=== PATIENT | female | born 1980 | race Caucasian/White ===

== ENCOUNTER 2018-09-17 15:19 | Emergency (ER) | payer MEDICARE, MEDICAID ==
[~2018-09-17] VITALS: Ht 157.5 cm; Wt 134.0 kg
[~2018-09-17 15:19] MED LIST: DIAZ2TAB PO; IBUP-1985 PO; ONDA8TAB13 PO; POLY17PO10 PO; SENN-25 PO; SUCR1ORA2 PO; [UNRECOGNIZED DRUG - CODE] PO
[2018-09-17 15:31] VITALS: BP 147/82
[2018-09-17] MEDS ORDERED: benzonatate 100mg capsule PO ONE (15:55)
[2018-09-17] MEDS ORDERED: BENZ-16 PO (15:56)
[2018-09-17] MEDS ORDERED: CETI-102 PO (15:56)
[2018-09-17] MEDS ORDERED: GUAI237S46 PO (15:56)
== END 2018-09-17 16:09 | disposition home or self-care (01) ==
LOC: ER 15:20
DX: J02.8 Acute pharyngitis due to other specified organisms (principal); B97.89 Other viral agents as the cause of diseases classified elsewhere; R05 Cough; G43.909 Migraine, unspecified, not intractable, without status migrainosus; M19.90 Unspecified osteoarthritis, unspecified site; M79.7 Fibromyalgia; Z98.890 Other specified postprocedural states; Z90.89 Acquired absence of other organs; Z88.8 Allergy status to other drugs, medicaments and biological substances; Z88.1 Allergy status to other antibiotic agents; Z88.6 Allergy status to analgesic agent; Z79.899 Other long term (current) drug therapy
CPT/HCPCS: 99283

== ENCOUNTER 2018-10-28 18:42 | Emergency (ER) | payer MEDICAID, MEDICARE, OTHER ==
[~2018-10-28] VITALS: Ht 157.5 cm; Wt 124.5 kg
[~2018-10-28 18:42] MED LIST changes: +CETI-102 PO
[2018-10-28 18:56] VITALS: BP 132/75
[2018-10-28] MEDS ORDERED: ibuprofen tablet 400 MG TABLET PO ONE (19:25)
== END 2018-10-28 21:02 | disposition home or self-care (01) ==
LOC: ER 18:42
DX: S16.1XXA Strain of muscle, fascia and tendon at neck level, initial encounter (principal); G43.909 Migraine, unspecified, not intractable, without status migrainosus; M19.90 Unspecified osteoarthritis, unspecified site; M79.7 Fibromyalgia; Z98.890 Other specified postprocedural states; Z90.89 Acquired absence of other organs; Z88.8 Allergy status to other drugs, medicaments and biological substances; Z88.1 Allergy status to other antibiotic agents; Z88.6 Allergy status to analgesic agent; Z88.3 Allergy status to other anti-infective agents; Z79.899 Other long term (current) drug therapy; V49.88XA Car occupant (driver) (passenger) injured in other specified transport accidents, initial encounter; Y93.89 Activity, other specified; Y92.413 State road as the place of occurrence of the external cause; Y99.9 Unspecified external cause status
CPT/HCPCS: 72040; 99284

== ENCOUNTER 2019-01-06 18:29 | Emergency (ER) | payer MEDICARE, MEDICAID ==
[~2019-01-06] VITALS: Ht 157.5 cm; Wt 131.6 kg
[2019-01-06 18:32] VITALS: BP 145/40
[2019-01-06 19:19] LABS: BASOPHILS # (AUTO) 0.1 X10'3 (0-0.2); BASOPHILS % (AUTO) 0.5 % (0-1); EOSINOPHILS # (AUTO) 0.2 X10'3 (0-0.9); EOSINOPHILS % (AUTO) 1.8 % (0-6); HEMATOCRIT 36.8 % (35.0-45.0); HEMOGLOBIN 12.2 g/dl (12.0-16.0); LYMPHOCYTES # (AUTO) 1.9 X10'3 (1.1-4.8); LYMPHOCYTES % (AUTO) 17.7 % (21-51); MEAN CORPUSCULAR HEMOGLOBIN 26.9 PG (27.0-31.0); MEAN CORPUSCULAR HGB CONC 33.3 g/dL (33.0-36.5); MEAN CORPUSCULAR VOLUME 80.9 FL (78-98); MEAN PLATELET VOLUME 8.5 FL (7.4-10.4); MONOCYTES # (AUTO) 0.5 X10'3 (0-0.9); MONOCYTES % (AUTO) 4.6 % (2-12); NEUTROPHILS # (AUTO) 8.2 X10'3 (1.8-7.7); NEUTROPHILS % (AUTO) 75.4 % (42-75); PLATELET COUNT 265 X10'3 (140-440); RED BLOOD COUNT 4.55 X10'6 (4.20-5.60); RED CELL DISTRIBUTION WIDTH 15.7 % (11.5-14.5)
[2019-01-06] MEDS ORDERED: acetaminophen 325mg tablet PO ONE ×2 (19:25→19:30)
[2019-01-06] MEDS ORDERED: azithromycin 250mg tablet PO ONE (19:30)
[2019-01-06] MEDS ORDERED: ketorolac trometh inj. 60 MG/2 ML VIAL IM ONE (19:30)
[2019-01-06 19:33] LABS: ALANINE AMINOTRANSFERASE 24 U/L (12-78); ALBUMIN 3.6 G/DL (3.4-5.0); ALBUMIN/GLOBULIN RATIO 0.8 (1.1-1.5); ALKALINE PHOSPHATASE 107 IU/L (46-116); ANION GAP 10 (8-16); ASPARTATE AMINO TRANSFERASE 11 U/L (10-37); BILIRUBIN,TOTAL 0.3 MG/DL (0.1-1.0); BLOOD UREA NITROGEN 11 MG/DL (7-18); BUN/CREATININE RATIO 12.6 (6.6-38.0); CALCIUM 9.2 MG/DL (8.5-10.1); CHLORIDE 104 MMOL/L (99-107); CREATININE 0.87 MG/DL (0.40-0.90); GLUCOSE 115 MG/DL (70-104); POTASSIUM 3.4 MMOL/L (3.5-5.1); SODIUM 137 MMOL/L (135-145); TOTAL PROTEIN 8.1 G/DL (6.4-8.2); eGFR 74 ML/MIN
[2019-01-06] MEDS ORDERED: IBUP-1985 PO (20:14)
[2019-01-06] MEDS ORDERED: ACET-2615 PO (20:14)
[2019-01-06] MEDS ORDERED: AZIT-63 PO (20:14)
[2019-01-06] MEDS ORDERED: BENZ-16 PO (20:14)
== END 2019-01-06 20:37 | disposition home or self-care (01) ==
LOC: ER 18:29
DX: R50.9 Fever, unspecified (principal); R05 Cough; G43.909 Migraine, unspecified, not intractable, without status migrainosus; M19.90 Unspecified osteoarthritis, unspecified site; M79.7 Fibromyalgia; Z98.890 Other specified postprocedural states; Z90.89 Acquired absence of other organs; Z88.1 Allergy status to other antibiotic agents; Z88.3 Allergy status to other anti-infective agents; Z88.6 Allergy status to analgesic agent; Z79.899 Other long term (current) drug therapy
CPT/HCPCS: 36415; 71045; 80053; 83605; 84145; 85025; 87040; 93005; 96372; 99284; J1885

== ENCOUNTER 2020-01-22 19:28 | Emergency (ER) | payer MEDICARE, MEDICAID ==
[~2020-01-22] VITALS: Ht 157.5 cm; Wt 133.6 kg
[~2020-01-22 19:28] MED LIST changes: -CETI-102 PO; +CETI-90 PO
[2020-01-22 19:32] VITALS: BP 146/86
== END 2020-01-22 21:03 | disposition left against medical advice (07) ==
LOC: ER 19:28
DX: R50.9 Fever, unspecified (principal); Z53.21 Procedure and treatment not carried out due to patient leaving prior to being seen by health care provider

== ENCOUNTER 2021-03-02 00:04 | Emergency (ER) | payer MEDICARE, MEDICAID ==
[~2021-03-02] VITALS: Ht 154.9 cm; Wt 139.3 kg
[2021-03-02 00:19] VITALS: BP 137/59
== END 2021-03-02 01:10 | disposition home or self-care (01) ==
LOC: ER 00:05
DX: R09.89 Other specified symptoms and signs involving the circulatory and respiratory systems (principal); J01.10 Acute frontal sinusitis, unspecified; J01.00 Acute maxillary sinusitis, unspecified; J34.89 Other specified disorders of nose and nasal sinuses; G43.909 Migraine, unspecified, not intractable, without status migrainosus; I10 Essential (primary) hypertension; M19.90 Unspecified osteoarthritis, unspecified site; F41.9 Anxiety disorder, unspecified; F32.9 Major depressive disorder, single episode, unspecified; Z87.440 Personal history of urinary (tract) infections; Z90.89 Acquired absence of other organs; Z98.890 Other specified postprocedural states; Z72.89 Other problems related to lifestyle; Z88.1 Allergy status to other antibiotic agents; Z88.6 Allergy status to analgesic agent; Z88.8 Allergy status to other drugs, medicaments and biological substances; Z79.2 Long term (current) use of antibiotics; Z79.899 Other long term (current) drug therapy
CPT/HCPCS: 99282

== ENCOUNTER 2023-03-09 16:08 | Emergency (ER) | payer MEDICARE, MEDICAID ==
[~2023-03-09] VITALS: Ht 157.5 cm; Wt 118.2 kg
[2023-03-09 16:26] VITALS: BP 140/80; PULSE 85; RESP 18; TEMP 98.1; O2SAT 98
== END 2023-03-09 18:43 | disposition left against medical advice (07) ==
LOC: ER 16:09
DX: L53.8 Other specified erythematous conditions (principal); G43.909 Migraine, unspecified, not intractable, without status migrainosus; M19.90 Unspecified osteoarthritis, unspecified site; Z88.1 Allergy status to other antibiotic agents; Z88.5 Allergy status to narcotic agent; Z79.2 Long term (current) use of antibiotics; Z79.899 Other long term (current) drug therapy; Z98.890 Other specified postprocedural states
CPT/HCPCS: 99281

== ENCOUNTER 2024-08-29 22:57 | Emergency (ER) | payer MEDICARE, MEDICAID ==
[~2024-08-29] VITALS: Ht 157.5 cm; Wt 121.7 kg
[~2024-08-29 22:57] MED LIST changes: +ONDA-245 PO; -ONDA8TAB13 PO
[2024-08-29] MEDS ORDERED: AMOX-117 PO (23:44)
[2024-08-29] MEDS ORDERED: PSEU120T56 PO (23:44)
[2024-08-29] MEDS ORDERED: FLUT16SP2 BOTHNARES (23:44)
[2024-08-30 00:05] VITALS: BP 115/75; PULSE 84; RESP 17; TEMP 97.4; O2SAT 100
[2024-08-30] MEDS: fluconazole 100mg tablet PO ONE (00:53)
== END 2024-08-30 01:10 | disposition home or self-care (01) ==
LOC: ER 22:57
DX: J32.9 Chronic sinusitis, unspecified (principal); I10 Essential (primary) hypertension; M19.90 Unspecified osteoarthritis, unspecified site; M79.7 Fibromyalgia; F41.9 Anxiety disorder, unspecified; F32.A Depression, unspecified; Z88.5 Allergy status to narcotic agent; Z90.89 Acquired absence of other organs; Z88.1 Allergy status to other antibiotic agents; Z98.890 Other specified postprocedural states
CPT/HCPCS: 99283

== ENCOUNTER 2024-11-05 22:04 | Emergency (ER) | payer MEDICARE, MEDICAID ==
[~2024-11-05] VITALS: Ht 157.5 cm; Wt 114.5 kg
[~2024-11-05 22:04] MED LIST changes: +FLUT16SP2 BOTHNARES; +PSEU120T56 PO
[2024-11-05 22:32] LABS: URINE HCG NEGATIVE (NEG)
[2024-11-05 22:33] LABS: BILIRUBIN,URINE NEGATIVE (Neg); CLARITY,URINE CLEAR (Clear); COLOR,URINE YELLOW (Yellow); GLUCOSE, URINE NEGATIVE (Neg); KETONES,URINE NEGATIVE (Neg); LEUKOCYTE ESTERASE ,URINE TRACE (Neg); NITRITES, URINE NEGATIVE (Neg); OCCULT BLOOD,URINE TRACE-INTACT (Neg); PH,URINE 5.5 (4.8-8.0); PROTEIN,URINE NEGATIVE (Neg); UROBILINOGEN,URINE 0.2 E.U/dL (0.2-1.0)
[2024-11-05 22:39] LABS: UA COLLECTION TYPE CLN CATCH MIDSTREAM
[2024-11-05 22:41] LABS: BACTERIA,URINE NONE SEEN /HPF (Neg); RBC,URINE 0-2 /HPF (0-2); SQUAMOUS EPITHELIAL CELL,UR FEW /LPF (FEW); WBC,URINE NONE SEEN /HPF (0-4)
[2024-11-06] MEDS ORDERED: TINI500T18 PO (00:39)
--- NOTE | 2024-11-06 00:39 | Physician Documentation ---
History of Present Illness ~ Chief Complaint: Vaginal pain Stated Complaint: URINARY SYMPTOMS Time Seen by MD: 00:18 Primary Medical Doctor: JYOTSNA VILLAGOMEZ Mode of Arrival: Ambulatory HPI 44 year old female with burning vaginal pain and dysuria for several days. Reports she may have been exposed to STIs and would like testing and treatment. Also reports yellowish discharge and foul odor. Denies abdominal pain, N/V/D. Last Menstrual Period: Sep 24, 2024 Medication Reconciliation Allergies: Coded Allergies: venlafaxine (Verified Allergy, Intermediate, tremors, 11/05/24) clindamycin (Verified Allergy, Unknown, 11/05/24) doxycycline (Verified Allergy, Unknown, 11/05/24) tramadol (Verified Allergy, Unknown, 11/05/24) Scheduled Cetirizine HCl (Zyrtec), 1 TAB PO DAILY Ciprofloxacin HCl (Cipro), 1 TAB PO BID Fluticasone Propionate (Flonase), 2 SPRAYS BOTHNARES DAILY Ibuprofen (Ibuprofen), 1 TAB PO Q6H Polyethylene Glycol 3350* (Miralax*), 1 PKT PO DAILY Pseudoephedrine HCl (Sudafed 12 Hour), 1 TAB PO Q12H Sennosides (Senokot), 1 TABLET PO BID Sucralfate (Carafate), 10 ML PO ACHS Scheduled PRN Diazepam (Valium), 1 TABLET PO TID PRN for muscle spasms Ibuprofen (Ibuprofen), 1 TAB PO Q8H PRN for pain Ondansetron 8mg ODT (Ondansetron Odt), 1 TAB PO TID PRN for nausea/vomiting Past Medical History Past Medical History: Migraine, Hypertension, UTI, Arthritis, Fibromyalgia, Anxiety, Depression Past Surgical History: , orthopedic surgeries, tonsillectomy Last Menstrual Period: Sep 24, 2024 Alcohol Use: Occasionally Drug Use: none Lives with: Family Lives In: Home Occupation: employed Review of Systems All Other Systems at this time: Reviewed and Negative Physical Exam Vital Signs: RN Vital Signs have been reviewed: Yes, Temperature: 97.6, Source: Oral, Heart Rate: 83, Respiratory Rate: 18, Pulse Oximetry: 99, Weight: 114.550 Physical Exam HEENT: PERRL, moist oral mucosa, EOMI Pulmonary: No respiratory distress MSK: no deformity Skin: w/d/i, no rash Neuro: alert, nonfocal Psych: normal affect Progress Results/Orders Results/Orders Orders - THERESA IVEY MD Chlamydia/Gc Pcr (11/06/24 00:20) Completed Orders - THERESA IVEY MD Hcg, Ur Ql (11/05/24 22:14) Ua W/Microscopic, Cult If Ind (11/05/24 22:21) Fluconazole Tablet (Diflucan Tablet) (11/06/24 00:25) Ceftriaxone 250 Im W/Lidocaine (Rocephin (11/06/24 00:25) Azithromycin Tablet (Zithromax Tablet) (11/06/24 00:25) Vital Signs 11/05/24 11/06/24 22:09 00:10 Temp 97.6 Pulse 83 Resp 20 18 B/P (MAP) Pulse Ox 99 Laboratory Tests Test 11/05/24 22:21 Urine Specimen Description Cln catch midstream Urine Color Yellow Urine Clarity Clear Urine pH 5.5 Urine Specific [place] 1.025 Urine Protein Negative Urine Glucose (UA) Negative Urine Ketones Negative Urine Occult Blood Trace-intact Urine Nitrite Negative Urine Bilirubin Negative Urine Urobilinogen 0.2 Urine Leukocyte Esterase Trace H Urine RBC 0-2 Urine WBC None seen Urine Squamous Epithelial Cells Few Urine Bacteria None seen Urine Culture Indicated Not ind Volume Urine Centrifuged 10 ml Urine HCG, Qualitative Negative Urine Comment Medical Decision Making Findings 44 year old female with vaginal symptoms as above. Will test for GC/CT and treat empirically for both as well as with fluconazole for possible yeast infection and tinidazole for possible trichomonas. Return precautions discussed. Departure Disposition: HOME / SELF CARE / HOMELESS Impression: Primary Impression: Discomfort of vagina Condition: Stable Discharge Instructions: Bacterial Vaginosis (BV) Referrals: NO PRIMARY CARE PROVIDER (PCP) Prescriptions Tinidazole (Tinidazole) 500 Mg Tablet 4 TAB PO ONCE for 1 Day, #4 TAB 0 Refills Prov: THERESA IVEY MD 11/06/24 Education Educated: Patient Educated regarding: diagnosis, treatment, prognosis, need for follow up Signature Scribe Signature: . Attestation: . THERESA IVEY MD November 06, 2024 00:39
[2024-11-06] MEDS: azithromycin 250mg tablet PO ONE (00:42)
[2024-11-06] MEDS: CefTRIAXone 250MG IM Kit w/LIDOcaine IM ONE (00:42)
[2024-11-06] MEDS: fluconazole 150mg tablet PO ONE (01:16)
[2024-11-06] MEDS: fluconazole 150mg tablet ONE (01:16)
[2024-11-06 01:24] VITALS: BP 144/94; PULSE 74; RESP 16; TEMP 97.6; O2SAT 97
== END 2024-11-06 01:26 | disposition home or self-care (01) ==
LOC: ER 22:04
DX: R10.2 Pelvic and perineal pain (principal); I10 Essential (primary) hypertension; M19.90 Unspecified osteoarthritis, unspecified site; F41.9 Anxiety disorder, unspecified; F32.A Depression, unspecified; M79.7 Fibromyalgia; G43.909 Migraine, unspecified, not intractable, without status migrainosus; Z88.1 Allergy status to other antibiotic agents; Z88.5 Allergy status to narcotic agent; Z90.89 Acquired absence of other organs
CPT/HCPCS: 36415; 81001; 81025; 87491; 87591; 96372; 99283; J0696

== ENCOUNTER 2025-01-02 20:09 | Emergency (ER) | payer MEDICARE, MEDICAID ==
[~2025-01-02] VITALS: Ht 157.5 cm; Wt 105.0 kg
[~2025-01-02 20:09] MED LIST changes: +TINI500T18 PO
--- NOTE | 2025-01-02 20:27 | Physician Documentation ---
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 Unaware of last tetanus Tetanus Within 5 Years: No (Didnt ask) Medication Reconciliation Allergies: Coded Allergies: venlafaxine (Verified Allergy, Intermediate, tremors, 11/05/24) clindamycin (Verified Allergy, Unknown, 11/05/24) doxycycline (Verified Allergy, Unknown, 11/05/24) tramadol (Verified Allergy, Unknown, 11/05/24) Scheduled Cetirizine HCl (Zyrtec), 1 TAB PO DAILY Ciprofloxacin HCl (Cipro), 1 TAB PO BID Fluticasone Propionate (Flonase), 2 SPRAYS BOTHNARES DAILY Ibuprofen (Ibuprofen), 1 TAB PO Q6H Polyethylene Glycol 3350* (Miralax*), 1 PKT PO DAILY Pseudoephedrine HCl (Sudafed 12 Hour), 1 TAB PO Q12H Sennosides (Senokot), 1 TABLET PO BID Sucralfate (Carafate), 10 ML PO ACHS Tinidazole (Tinidazole), 4 TAB PO ONCE Scheduled PRN Diazepam (Valium), 1 TABLET PO TID PRN for muscle spasms Ibuprofen (Ibuprofen), 1 TAB PO Q8H PRN for pain Ondansetron 8mg ODT (Ondansetron Odt), 1 TAB PO TID PRN for nausea/vomiting Past Medical History Past Medical History: Migraine, Hypertension, UTI, Arthritis, Fibromyalgia, Anxiety, Depression Past Surgical History: , orthopedic surgeries, tonsillectomy Alcohol Use: Occasionally Drug Use: none Lives with: Family Lives In: Home Occupation: employed Review of Systems All Other Systems at this time: Reviewed and Negative Integumentary: Reports: see HPI Physical Exam Vital Signs: RN Vital Signs have been reviewed: Yes, Temperature: 97.8, Source: Temporal, Heart Rate: 80, Respiratory Rate: 18, BP: 131/53, Pulse Oximetry: 99, Weight: 105.000 Physical Exam General: Alert, no apparent distress. Respiratory: Lungs clear, no respiratory distress. Chest: No accessory muscle use. Cardiovascular: Appears well-perfused Extremities: Normal range of motion, no deformity. Neurologic: Oriented x4. Psychiatric: Normal mood and affect. Skin: Normal color, warm and dry. Small 3 cm laceration to right middle finger pad sensation circulation intact bleeding controlled Procedures Laceration/Wound Repair Laceration : Location: Right middle finger Length (cm): 3 Anesthesia: Lidocaine w/ Epi Volume Anesthetic (mls): 2 Prep: betadine, irrigated by nurse Wound Repaired With: sutures Suture Size/Type: 4-0, prolene Number of Superficial Sutures: 4 Layer Closure?: No Splint Applied?: No Sling Applied?: No Tolerated Procedure Well?: yes, no complications Progress Results/Orders Results/Orders Orders - YOLI PENDLETON NP Laceration/I&D Tray Set Up (01/02/25 20:24) Completed Orders - YOLI PENDLETON NP Tetanus/Pertuss/Diph Acell/Pf (Boostrix (01/02/25 20:25) Bacitracin Ointment (Bacitracin Ointment (01/02/25 20:25) Lidocaine 1% W/Epi 1:100,000 (Xylocaine (01/02/25 20:25) Medications Received in ER Medications (Trade) Dose Ordered Sig/Keyanna Route PRN Reason Start Time Stop Time Status Last Admin Dose Admin (Xylocaine 1%-EPI 1:100,000) Physician to administ... ONCE ONCE IJ 01/02/25 20:25 01/02/25 20:31 DC 01/02/25 20:41 5 ML (Boostrix vaccine syringe) 0.5 ml ONCE ONCE IMVAC 01/02/25 20:25 01/02/25 20:26 DC 01/02/25 20:42 0.5 ML (bacitracin ointment) 1 applic ONCE ONCE TP 01/02/25 20:25 01/02/25 20:26 DC 01/02/25 20:41 1 APPLIC Vital Signs 01/02/25 20:16 Temp 97.8 Pulse 80 Resp 18 B/P (MAP) 131/53 Pulse Ox 99 Medical Decision Making Findings Tetanus provided sutured finger follow up with primary care for suture removal Departure Time of Disposition: 21:22 Disposition: 01 HOME / SELF CARE / HOMELESS Impression: Primary Impression: Laceration Condition: Stable Discharge Instructions: Laceration Care, Adult, [id number] Additional Instructions: Follow up with primary care urgent care for suture removal in 10 days monitor for signs of infection. Leave bandage on for 24 hours then leave open to air may shower and get wet in 24 hours pat dry Referrals: NO PRIMARY CARE PROVIDER (PCP) Education Educated: Patient Educated regarding: diagnosis, treatment, need for follow up Signature Scribe Signature: No scribe Attestation: The note accurately reflects work and decisions made by me.Yoli RODRIGUEZ 01/02/25 20:27 YOLI PENDLETON NP Jan 02, 2025 20:27
[2025-01-02] MEDS: LIDOcaine 1% W/epiNEPHrine 1:100,000 20ml vial IJ ONE (20:41)
[2025-01-02] MEDS: bacitracin 15gm ointment TP ONE (20:41)
[2025-01-02] MEDS: TETanus/Pertussis (Acell)/Diphther VAC/PF (Tdap-Adult) 0.5ml syringe IMVAC ONE (20:42)
[2025-01-02 21:21] VITALS: BP 130/50; PULSE 72; RESP 18; TEMP 98.6; O2SAT 99
== END 2025-01-02 21:23 | disposition home or self-care (01) ==
LOC: ER 20:10
DX: S61.212A Laceration without foreign body of right middle finger without damage to nail, initial encounter (principal); M19.90 Unspecified osteoarthritis, unspecified site; I10 Essential (primary) hypertension; G43.909 Migraine, unspecified, not intractable, without status migrainosus; F41.9 Anxiety disorder, unspecified; F32.A Depression, unspecified; M79.7 Fibromyalgia; Z88.1 Allergy status to other antibiotic agents; Z88.5 Allergy status to narcotic agent; Z79.899 Other long term (current) drug therapy; Z72.89 Other problems related to lifestyle
CPT/HCPCS: 12002; 90715; 99283; G0008; J3490; Z7610; 90471

== ENCOUNTER 2025-02-28 02:05 | Emergency (ER) | payer MEDICARE, MEDICAID ==
[~2025-02-28] VITALS: Ht 157.5 cm; Wt 119.6 kg
[~2025-02-28 02:05] MED LIST changes: -IBUP-1985 PO; +IBUP600T52 PO; -SENN-25 PO; +SENN-398 PO
== END 2025-02-28 03:34 | disposition left against medical advice (07) ==
LOC: ER 02:06
DX: Z00.8 Encounter for other general examination (principal); Z88.0 Allergy status to penicillin; Z53.21 Procedure and treatment not carried out due to patient leaving prior to being seen by health care provider